=== PATIENT | female | born 1980 | race Caucasian/White ===

== ENCOUNTER 2019-03-03 15:19 | Emergency (ER) | payer MEDICAID ==
[~2019-03-03] VITALS: Ht 160 cm; Wt 84.4 kg
[2019-03-03 15:31] VITALS: Ht 160 cm; Wt 84.4 kg
== END 2019-03-03 19:06 | disposition home or self-care (01) ==
LOC: ED 15:19
DX: S91.011A Laceration without foreign body, right ankle, initial encounter (principal); F17.210 Nicotine dependence, cigarettes, uncomplicated; Z98.890 Other specified postprocedural states; W22.8XXA Striking against or struck by other objects, initial encounter; Y93.89 Activity, other specified; Y92.89 Other specified places as the place of occurrence of the external cause; Y99.8 Other external cause status
CPT/HCPCS: 90715; J2001